=== PATIENT | male | born 1975 | race Hispanic/Latino ===

== ENCOUNTER 2022-10-24 09:57 | Emergency (ER) | payer OTHER ==
[2022-10-24 10:14] LABS: #Basophils 0.1 thou/uL (0.0-0.2); #Eosinphils 0.5 thou/uL (0.0-0.7); #Lymphocytes 2.2 thou/uL (1.20-3.40); #Monocytes 0.5 thou/uL (0.11-0.59); #Neutrophils 4.5 thou/uL (1.40-6.50); %Basophils 1.8 % (0.0-1.0); %Eosinophils 6.3 % (0.0-10.0); %Lymphocytes 28.1 % (21.0-51.0); %Monocytes 6.6 % (0.0-10.0); %Neutrophils 57.3 % (42.0-75.0); Hemoglobin 18.1 g/dL (14.0-18.0); Mean Corpuscular HGB CONC 35.1 g/dL (32.0-36.0); Platelet Count 306 10x3/uL (130-400); RBC Distribution Width 11.7 % (11.5-14.5); Red Blood Cell (RBC) Count 5.66 mill/uL (4.70-6.10); White Blood Cell (WBC) Count 7.8 10x3/uL (4.8-10.8)
[2022-10-24 10:25] LABS: INR-International Normal Ratio 0.9; PTT 37.4 sec (22.9-36.1); Prothrombin Time 12.5 sec (12.0-14.7)
[2022-10-24 10:30] LABS: ALT (SGPT) 36 U/L (8-55); AST (SGOT) 20 U/L (5-34); Albumin 4.7 g/dL (3.5-5.0); Alkaline Phosphatase 76 U/L (40-110); Anion Gap 11 mmol/L (10-20); BUN (Urea Nitrogen) 20 mg/dL (8.9-20.6); Bilirubin, Total 0.4 mg/dL (0.2-1.2); Calc. Creatinine Clearance 0 mL/min (70-130); Calcium 8.9 mg/dL (7.8-10.44); Carbon Dioxide 25 mmol/L (22-29); Chloride 107 mmol/L (98-107); Estimated GFR 103; Globulin 2.7 g/dL (2.4-3.5); Glucose 119 mg/dL (70-105); Potassium 3.9 mmol/L (3.5-5.1); Protein, Total 7.4 g/dL (6.0-8.3); Sodium 139 mmol/L (136-145)
[2022-10-24] MEDS ORDERED: Iopamidol 370 76% 100 ML VIAL ONE (12:18)
[2022-10-24] MEDS ORDERED: Tenecteplase 50 MG ONE (13:04)
== END 2022-10-24 12:32 | disposition short-term general hospital (02) ==
LOC: BURERS 09:57
DX: I63.9 Cerebral infarction, unspecified (principal); I10 Essential (primary) hypertension; R29.702 NIHSS score 2; F17.210 Nicotine dependence, cigarettes, uncomplicated
CPT/HCPCS: 37195; 70450; 70496; 70498; 80053; 84484; 85025; 85610; 85730; 93005; J3101; Q9967